=== PATIENT | male | born 1985 | race Caucasian/White ===

== ENCOUNTER 2017-09-29 06:40 | Emergency (ER) | payer SELFPAY ==
[~2017-09-29] VITALS: Ht 182.9 cm; Wt 68.0 kg
[~2017-09-29 06:40] MED LIST: ALPR.25 PO; AMOCLA500 PO; Amoxicillin500 MG PO; BENZ100A PO; CEPH500 PO; CLOT1TC TOP; CYCL10 PO; Cleocin HCl300 MG PO; ERYT.5TO OD; ERYT.5TO OS; HYDACE5 PO; IBUP400 PO; IBUP800; IBUP800 PO; METCAR750 PO; NAPR500 PO; NEOCOLOTSU OT; Naprosyn500 MG PO; OXYACE5T PO; PENVK250 PO; PENVK500 PO; PROM25 PO; Percocet 5-3251 EACH PO; Peridex480 ML PO; SILVADENE; SULTRIDS PO; SULTRISS PO; Veetids 500500 MG PO
[2017-09-29] MEDS ORDERED: IBUP800 PO (07:25)
[2017-09-29] MEDS ORDERED: PENVK500 PO (07:25)
[2018-02-24] MEDS ORDERED: Naprosyn500 MG PO (21:15)
[2018-02-24] MEDS ORDERED: Amoxicillin500 MG PO (21:15)
== END 2017-09-29 07:31 | disposition home or self-care (01) ==
LOC: ER 06:40
DX: K04.7 Periapical abscess without sinus (principal); K03.81 Cracked tooth; F17.210 Nicotine dependence, cigarettes, uncomplicated
CPT/HCPCS: 99283

== ENCOUNTER 2018-04-26 14:03 | Emergency (ER) | payer MEDICAID ==
[~2018-04-26] VITALS: Ht 182.9 cm; Wt 68.0 kg
[2018-04-26] MEDS ORDERED: CYCL10 PO (14:29)
[2018-04-26] MEDS ORDERED: Naprosyn500 MG PO (14:29)
== END 2018-04-26 14:34 | disposition home or self-care (01) ==
LOC: ER 14:03
DX: M54.2 Cervicalgia (principal); F17.200 Nicotine dependence, unspecified, uncomplicated
CPT/HCPCS: 96372; 99283; J1885

== ENCOUNTER 2021-11-12 15:37 | Emergency (ER) | payer SELFPAY ==
[~2021-11-12] VITALS: Ht 182.9 cm; Wt 68.0 kg
[2021-11-12] MEDS ORDERED: IBU800 MG PO (16:23)
[2021-11-12] MEDS ORDERED: Cleocin HCl300 MG PO (16:23)
== END 2021-11-12 17:45 | disposition home or self-care (01) ==
LOC: ER 15:37
DX: K02.9 Dental caries, unspecified (principal); F17.210 Nicotine dependence, cigarettes, uncomplicated
CPT/HCPCS: A9270

== ENCOUNTER 2022-04-27 09:44 | Day surgery (SDC) | payer OTHER ==
[~2022-04-27] VITALS: Ht 182.9 cm; Wt 65.2 kg
[~2022-04-27 09:44] MED LIST changes: +AMLOATOR PO; +DIGOX250 MC1 PO; +FENTANYL1 EA11 TOP; +IBU800 MG PO; +METF500 PO; +METO100ER PO; +MORP15ER PO; +TRAZ50 PO
--- NOTE | 2022-04-27 10:49 | NUR ---
04/27/22 1049 Netta Roberto HISTORY, CHART, MEDICATIONS AND ALLERGIES REVIEWED BEFORE START OF PROCEDURE. PATIENT CONFIRMS NPO STATUS AND AGREES WITH SCHEDULED PROCEDURE. 3-LEAD EKG REVIEWED WITH PHYSICIAN PRIOR TO START OF PROCEDURE. MONITOR INTACT WITH CONTINUOUS PULSE OXIMETRY,CAPNOGRAPHY, 3-LEAD EKG, INTERMITTENT BP. SUPPLEMENTAL O2 TO BE TITRATED THROUGHOUT PROCEDURE TO MAINTAIN O2 SATURATION ABOVE 90%. PATIENT DETERMINED TO BE ASA APPROPRIATE FOR PROPOFOL SEDATION PRIOR TO START OF PROCEDURE BY DR. DE OLIVEIRA.
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
--- NOTE | 2022-04-27 11:59 | NUR ---
Discharge instructions reviewed with patient. Patient verbalizes understanding. Copy given to patient to take home. Discharged via wheelchair to private car for ride home.
== END 2022-04-27 23:27 | disposition home or self-care (01) ==
LOC: ORSCMMR 09:44 → ORD 10:30 → ORSCMMR 10:30
PROVIDERS: Internal Medicine Gastroenterology
PROC: 0DBM8ZX Excision of Descending Colon, Via Natural or Artificial Opening Endoscopic, Diagnostic (ICD-10-PCS; principal; 2022-04-27 10:30)
DX: K62.5 Hemorrhage of anus and rectum (principal); D12.3 Benign neoplasm of transverse colon; D12.4 Benign neoplasm of descending colon; K59.00 Constipation, unspecified; Z87.891 Personal history of nicotine dependence
CPT/HCPCS: 88305; J2250; J2704; J7120

== ENCOUNTER → 2022-05-12 | Outpatient (CLI) | payer OTHER | LOC: LAB SHORT 13:33 → PLD 13:33 → LAB 13:33 | DX: L91.8 Other hypertrophic disorders of the skin (principal) | CPT/HCPCS: 88304 ==